=== PATIENT | female | born 1995 ===

== ENCOUNTER 2018-02-09 17:14 | Emergency (ER) | payer OTHER ==
[2018-02-09 19:05] LABS: ABS Basophils 0 10^3/ul (0-0.2); ABS Eosinophils 0 10^3/ul (0-0.6); ABS Lymphocytes 1.8 10^3/ul (1.0-4.8); ABS Monocytes 0.7 10^3/ul (0-0.8); ABS Neutrophils 6.5 10^3/ul (1.5-7.7); ABS Nucleated RBC 0 10^3/ul; Eosinophil % 0.5 % (0-6); Hematocrit 46 % (35-47); Hemoglobin 15.3 g/dl (12.0-16.0); Lymphocyte % 19.9 % (25-47); Mean Corpuscular HGB Conc 33 g/dl (31-36); Mean Corpuscular Hemoglobin 26 pg (27-31); Mean Corpuscular Volume 78 fL (80-97); Mean Platelet Volume 8.7 um3 (7.4-10.4); Nucleated Red Blood Cells % 0; Platelet Count 212 10^3/ul (150-450); Red Blood Count 5.89 10^6/ul (4.00-5.40); Red Cell Distribution Width 13 % (10.5-15)
[2018-02-09] MEDS ORDERED: Ibuprofen TAB* 600 MG PO ONE (19:28)
[2018-02-09] MEDS ORDERED: traMADol TAB* 50 MG PO ONE (19:28)
--- NOTE | 2018-02-09 19:30 | ED ---
Abdominal Pain/Female - HPI Summary HPI Summary: This is scribe Jovanna Boone documenting for attending Mic Diop MD. This patient is a 22 year old F presenting to [facility] with a chief complaint of right suprapubic since yesterday morning worsening today. Pain is 4/10 in severity. Patient describes last BM, as loose, occurring this morning. Reports nausea. Patient report a negative UA performed at [facility] today. LNMP was 01/28/18. Denies possibility of . I, Dr. Diop ,personally performed the services described in this documentation as scribed in my presence and it is both accurate and complete - History of Current Complaint Chief Complaint: EDAbdPain Stated Complaint: ABD PAIN Time Seen by Provider: 02/09/18 19:15 Hx Obtained From: Patient Onset/Duration: Lasting Days, Worse Since Timing: Constant Severity Initially: Mild Severity Currently: Moderate Pain Intensity: 4 Pain Scale Used: 0-10 Numeric Location: Suprapubic - right Alleviating Factor(s): Nothing Associated Signs and Symptoms: Positive: Nausea, Diarrhea Allergies/Adverse Reactions: Allergies Allergy/AdvReac Type Severity Reaction Status Date / Time No Known Allergies Allergy Verified 02/09/18 20:59 Home Medications: Home Medications NK [No Home Medications Reported] 02/09/18 [History Confirmed 02/09/18] PMH/Surg Hx/FS Hx/Imm Hx Cardiovascular History: Denies: Hx Coronary Artery Disease EENT History: Denies: Hx Deafness Infectious Disease History: No Infectious Disease History: Denies: Traveled Outside the [place] in Last 30 Days - Family History Family History: Patient denies relevant family history. - Social History Hx Substance Use: No Hx Tobacco Use: No Smoking Status (MU): Never Smoked Tobacco Review of Systems Negative: Fever Positive: Abdominal Pain, Diarrhea, Nausea All Other Systems Reviewed And Are Negative: Yes Physical Exam - Summary Physical Exam Summary: VITAL SIGNS: Reviewed. GENERAL: Patient is a well-developed and nourished female who is lying comfortable in the stretcher. Patient is not in any acute respiratory distress. HEAD AND FACE: No signs of trauma. No ecchymosis, hematomas or skull depressions. No sinus tenderness. EYES: PERRLA, EOMI x 2, No injected conjunctiva, no nystagmus. EARS: Hearing grossly intact. Ear canals and tympanic membranes are within normal limits. MOUTH: Oropharynx within normal limits. NECK: Supple, trachea is midline, no adenopathy, no JVD, no carotid bruit, no c- spine tenderness, neck with full ROM. CHEST: Symmetric, no tenderness at palpation LUNGS: Clear to auscultation bilaterally. No wheezing or crackles. CVS: Tachycardic rate and regular rhythm, S1 and S2 present, no murmurs or gallops appreciated. ABDOMEN: Soft,RLQ tenderness. No signs of distention. No rebound no guarding, and no masses palpated. Bowel sounds are normal. EXTREMITIES: FROM in all major joints, no edema, no cyanosis or clubbing. NEURO: Alert and oriented x 3. No acute neurological deficits. Speech is normal and follows commands. SKIN: Dry and warm Triage Information Reviewed: Yes Vital Signs On Initial Exam: Initial Vitals Temp Pulse Resp BP Pulse Ox 98 F 106 15 128/82 100 02/09/18 17:17 02/09/18 17:17 02/09/18 17:17 02/09/18 17:17 02/09/18 17:17 Vital Signs Reviewed: Yes Diagnostics - Vital Signs Vital Signs Temp Pulse Resp BP Pulse Ox 02/09/18 17:17 98 F 106 15 128/82 100 - Laboratory Lab Results: Lab Results 02/09/18 02/09/18 Range/Units 18:48 18:48 WBC 9.0 (3.5-10.8) 10^3/ul RBC 5.89 H (4.00-5.40) 10^6/ul Hgb 15.3 (12.0-16.0) g/dl Hct 46 (35-47) % MCV 78 L (80-97) fL MCH 26 L (27-31) pg MCHC 33 (31-36) g/dl RDW 13 (10.5-15) % Plt Count 212 (150-450) 10^3/ul MPV 8.7 (7.4-10.4) um3 Neut % (Auto) 71.7 (38-83) % Lymph % (Auto) 19.9 L (25-47) % [place] % (Auto) 7.5 H (0-7) % Eos % (Auto) 0.5 (0-6) % Baso % (Auto) 0.4 (0-2) % Absolute Neuts (auto) 6.5 (1.5-7.7) 10^3/ul Absolute Lymphs (auto) 1.8 (1.0-4.8) 10^3/ul Absolute Monos (auto) 0.7 (0-0.8) 10^3/ul Absolute Eos (auto) 0 (0-0.6) 10^3/ul Absolute Basos (auto) 0 (0-0.2) 10^3/ul Absolute Nucleated RBC 0 10^3/ul Nucleated RBC % 0 Sodium 135 (135-145) mmol/L Potassium 4.1 (3.5-5.0) mmol/L Chloride 103 (101-111) mmol/L Carbon Dioxide 24 (22-32) mmol/L Anion Gap 8 (2-11) mmol/L BUN 6 (6-24) mg/dL Creatinine 0.65 (0.51-0.95) mg/dL Est GFR ( Amer) 136.7 (>60) Est GFR (Non-Af Amer) 113.0 (>60) BUN/Creatinine Ratio 9.2 (8-20) Glucose 90 (70-100) mg/dL Calcium 10.0 (8.6-10.3) mg/dL Total Bilirubin 0.60 (0.2-1.0) mg/dL AST 20 (13-39) U/L ALT 14 (7-52) U/L Alkaline Phosphatase 48 (34-104) U/L C-Reactive Protein < 1.00 (<8.01) mg/L Total Protein 8.6 (6.4-8.9) g/dL Albumin 5.0 (3.2-5.2) g/dL Globulin 3.6 (2-4) g/dL Albumin/Globulin Ratio 1.4 (1-3) Lipase 25 (11.0-82.0) U/L Beta HCG, Quant < 0.60 mIU/mL Result Diagrams: 02/09/18 18:48 02/09/18 18:48 Lab Statement: Any lab studies that have been ordered have been reviewed, and results considered in the medical decision making process. Abdominal Pain Fem Course/Dx - Course Course Of Treatment: 22 year old F presenting to [facility] with a chief complaint of right suprapubic since yesterday morning worsening today. Pain is 4/10 in severity. Patient describes last BM, as loose, occurring this morning. Reports nausea. Patient report a negative UA performed at [facility] today. LNMP was 01/28/18. Denies possibility of . Bloodwork and UA are unremarkable. Patient is given Tramadol and Ibuprofen. A Transvaginal US is ordered. Patient's pain has resolved while in the ED. Patient states that she would like to go home since her pain has resolved. She will follow up with [facility] tomorrow and agrees to return to the ED if symptoms return. Patient will be discharged and is instructed to return if symptoms return. - Diagnoses Provider Diagnoses: Pelvic pain Discharge - Sign-Out/Discharge Documenting (check all that apply): Patient Departure - discharge - Discharge Plan Condition: Stable Disposition: HOME Patient Education Materials: Pelvic Pain in Women (ED), Abdominal Pain (ED) Referrals: [facility] - Glenn RANDALL [Medical Doctor] - 1 Day Additional Instructions: RETURN TO THE EMERGENCY DEPARTMENT FOR CHANGING OR WORSENING SYMPTOMS. FOLLOW UP WITH PCP IN 1-2 DAYS.
[2018-02-09 20:39] LABS: Urine Appearance Clear; Urine Blood Negative (Negative); Urine Color Straw; Urine Ketones 1+ (Negative); Urine Protein Negative (Negative); Urine Specific Gravity 1.003 (1.010-1.030); Urine Urobilinogen Negative (Negative)
[2018-02-09 21:24] VITALS: BP 123/88
== END 2018-02-09 21:22 | disposition home or self-care (01) ==
LOC: ED 17:14
DX: R10.2 Pelvic and perineal pain (principal)
CPT/HCPCS: 36415; 80053; 81003; 83690; 84702; 85025; 86140; 99282